=== PATIENT | female | born 1980 | race Caucasian/White ===

== ENCOUNTER 2022-01-03 08:11 | Emergency (ER) | payer SELFPAY ==
--- NOTE | 2022-01-03 08:23 | W.ED.GENADLT ---
HPI - General Adult General: Chief complaint: General Medical Stated complaint: Body Aches, Thought they had septsis HR High yest Time Seen by Provider: 01/03/22 08:16 Source: patient Mode of arrival: ambulatory Limitations: no limitations History of Present Illness: 41-year-old female presents emergency room with complaint of fever generalized weakness generally not feeling well. She states she is actually somewhat better today. She has a history of sepsis secondary to IV drug use. States she felt something [place] resolved now. She also has a dental carry on the right side that is swollen and painful. She denies any vomiting or diarrhea she has a midline umbilical hernia that has been present for some time and is unchanged. No vomiting or diarrhea no hematochezia melena hematemesis or coffee-ground emesis. No anosmia. Onset (ago): day(s) Severity: mild Relieving factors: none Exacerbating factors: none Associated symptoms: Reports diaphoresis, fevers/chills, malaise, nausea and weakness; Deny chest pain, confusion, cough, decreased appetite, dyspnea, headache(s), rash, palpitations, seizures, short of breath, syncope or vomiting Treatments prior to arrival: none Review of Systems Const: Reports: fever(s), chills, body aches, fatigue, malaise and diaphoresis ENMT: Denies: throat pain, ear or mastoid pain, nasal discharge or nasal congestion Card: Denies: chest pain, palpitations or syncope Resp: Denies: dyspnea GI: Reports: nausea; Denies: vomiting : Denies: flank pain, difficulty voiding, dysuria, urinary frequency or urinary urgency Skin/Breast: Denies: rash Neuro: Denies: headache(s) or confusion PFSH ED PFSH: Medical History Incarcerated umbilical hernia IV drug user Social History Smoking and tobacco status: current every day smoker Alcohol intake: current Desire information about substance/drug rehabilitation?: No Physical Exam Const: COMMON NORMALS: no acute distress GENERAL APPEARANCE: cooperative and comfortable ORIENTATION/CONSCIOUSNESS: Yes awake, Yes oriented to person, Yes oriented to place and Yes oriented to time HENMT: COMMON NORMALS: normocephalic, atraumatic, hearing grossly normal bilaterally, external ears normal, EAC's normal, TM's normal bilaterally, Normal nasal mucous membranes and turbinates present, moist oral mucous membranes and oropharynx normal HEAD & SCALP: normocephalic and atraumatic NOSE: Normal nasal mucous membranes and turbinates present EXTERNAL EAR: Yes external ears normal EXTERNAL AUDITORY CANAL: EAC's normal TYMPANIC MEMBRANE: TM's normal bilaterally Eye: COMMON NORMALS: Equal, round and reactive pupils present, EOMs intact bilaterally, conjunctivae normal and no scleral icterus CONJUNCTIVA: Yes conjunctivae normal PUPIL: Yes Equal, round and reactive pupils present Neck/C-Spine: COMMON NORMALS: full ROM, no lymphadenopathy, supple and no JVD Lymph: LYMPHATIC: no lymphadenopathy noted and no lymphedema noted Resp: COMMON NORMALS: normal respiratory effort, No retractions, No use of accessory muscles and clear to auscultation bilaterally AUSCULTATION: clear to auscultation bilaterally Cardio: COMMON NORMALS: no JVD, regular rate, regular rhythm and No murmurs present (Cardio) RATE: regular rate RHYTHM: regular rhythm GI: COMMON NORMALS: Soft to palpation and No hepatosplenomegaly present AUSCULTATION: Yes normoactive bowel sounds PALPATION: Yes Soft to palpation, No Tenderness to palpation present (GI), No Guarding due to palpation present (GI) and Yes No hepatosplenomegaly present OTHER: Nonreducible umbilical hernia superior to the umbilicus no significant pain : COMMON NORMALS: Yes no CVA tenderness BLADDER/KIDNEY EXAM: Yes no CVA tenderness Back/Pelvis: COMMON NORMALS: no CVA tenderness Extremity: COMMON NORMALS: normal to inspection, capillary refill normal, no clubbing, cyanosis or edema, no calf tenderness and no pedal edema Neuro: SENSORIUM/ORIENTATION: Yes oriented to person, Yes oriented to place and Yes oriented to time Skin: COMMON NORMALS: no rashes or lesions noted GENERAL SKIN EXAM: no rashes or lesions noted Course Vital Signs: Vital signs: Vital Signs Temperature 98.1 F 01/03/22 08:24 Pulse Rate 93 01/03/22 11:36 Respiratory Rate 15 01/03/22 08:24 Blood Pressure 109/76 01/03/22 11:36 Pulse Oximetry 100 01/03/22 11:36 [facility] - General Adult Medical Decision Making Patient does have the sore tooth there is no significant swelling no sign of abscess. Vitals essentially normal labs reviewed. She is currently on clindamycin for the tooth. We will add Bactrim to cover until her culture results are back no sign of sepsis this time overall patient is feeling well her white count is slightly low. Her liver functions are elevated suspect that is to do with her history of drug abuse the ultrasound of her gallbladder did not show acute cholecystitis nor did she have any symptoms suggestive of that. We will get her set up to see Dr. Merritt she will need further evaluation and repeat liver function testing. Return if has further problems. Continue self quarantine until Covid results are back she has fever or other worsening symptoms return take the Bactrim until culture results are available. At the time patient was seen there is no evidence of significant complication with her umbilical hernia was not evaluated further at this time she has had it for years and has not had any pain from it and does not now. Medical Records I reviewed the patient's medical records. Lab Data I reviewed the patient's lab results. : 01/03/22 08:43 01/03/22 08:43 Radiology Impressions Gallbladder Ultrasound 01/03/22 09:25 IMPRESSION: 1. Mild hepatomegaly with slightly coarse hepatic echotexture 2. Normal gallbladder. Gallbladder is contracted. 3. No hydronephrosis in RIGHT kidney. 4. Small umbilical hernia with hernia mouth measuring 0.6 cm. Herniated bowel with peristalsis in the hernia neck. No evidence of high-grade obstruction visualized. This can be further evaluated with CT for better anatomic detail. 5. Pancreas appears normal. Laboratory Results WBC 1.7 10^3/uL (4.0-10.0) L 01/03/22 08:43 RBC 4.94 10^6/uL (4.1-5.3) 01/03/22 08:43 Hgb 14.0 g/dL (11.5-15.3) 01/03/22 08:43 Hct 41.9 % (37.0-47.0) 01/03/22 08:43 MCV 84.8 fl (81-99) 01/03/22 08:43 MCH 28.3 pg (28.0-34.0) 01/03/22 08:43 MCHC 33.4 g/dL (30.0-36.0) 01/03/22 08:43 RDW 13.0 % (12.1-15.1) 01/03/22 08:43 Plt Count 140 10^3/cmm (130-400) 01/03/22 08:43 MPV 9.8 fL (7.4-10.4) 01/03/22 08:43 Neut % (Auto) 81.3 % 01/03/22 08:43 Lymph % (Auto) 11.7 % 01/03/22 08:43 [place] % (Auto) 3.5 % 01/03/22 08:43 Eos % (Auto) 2.3 % 01/03/22 08:43 Baso % (Auto) 0.6 % 01/03/22 08:43 Neut # (Auto) 1.39 10^3/uL (1.8-7.7) L 01/03/22 08:43 Lymph # (Auto) 0.2 10^3/uL (0.8-4.8) L 01/03/22 08:43 [place] # (Auto) 0.1 10^3/uL (0.2-0.9) L 01/03/22 08:43 Eos # (Auto) 0.0 10^3/uL (0.0-0.8) 01/03/22 08:43 Baso # (Auto) 0.0 10^3/uL (0.0-0.1) 01/03/22 08:43 Nucleated RBC % (auto) 0 % 01/03/22 08:43 Nucleated RBCs # 0.0 /100WBC 01/03/22 08:43 Sodium 131 mmol/L (136-145) L 01/03/22 08:43 Potassium 4.3 mmol/L (3.5-5.1) 01/03/22 08:43 Chloride 95 mmol/L (98-107) L 01/03/22 08:43 Carbon Dioxide 26 mmol/L (22-29) 01/03/22 08:43 Anion Gap 14.3 (5-19) 01/03/22 08:43 BUN 16 mg/dL (6-20) 01/03/22 08:43 Creatinine 0.7 mg/dL (0.5-0.9) 01/03/22 08:43 GFR Calculation 92.2 mL/min (90-130) 01/03/22 08:43 Glucose 102 mg/dL (65-115) 01/03/22 08:43 Calculated Osmolality 273 mOsm/kg (285-295) L 01/03/22 08:43 Lactic Acid 0.9 mmol/L (0.5-2.2) 01/03/22 09:35 Calcium 8.6 mg/dL (8.5-10.5) 01/03/22 08:43 Magnesium 1.7 mg/dL (1.7-2.3) 01/03/22 08:43 Total Bilirubin 2.0 mg/dL (0.15-1.2) H 01/03/22 08:43 AST 1247 U/L (0-32) H 01/03/22 08:43 ALT 367 U/L (0-33) H 01/03/22 08:43 Alkaline Phosphatase 321 IU/L (35-105) H 01/03/22 08:43 Total Protein 7.4 g/dL (6.6-8.7) 01/03/22 08:43 Albumin 4.6 g/dL (3.5-5.2) 01/03/22 08:43 Globulin 2.8 g/dL (1.3-4.6) 01/03/22 08:43 Lipase 9 U/L (13-60) L 01/03/22 08:43 Procalcitonin 0.45 ng/mL (0-0.5) 01/03/22 08:43 Ser , Semi-Qnt 0.50 mIU/mL 01/03/22 08:43 Urine Color Yellow (Yellow) 01/03/22 08:43 Urine Appearance Clear (CLEAR) 01/03/22 08:43 Urine pH 5 (5-7) 01/03/22 08:43 Ur Specific [place] 1.020 (1.005-1.030) 01/03/22 08:43 Urine Protein Trace (Negative) 01/03/22 08:43 Urine Glucose (UA) Norm (Normal) 01/03/22 08:43 Urine Ketones 1+ (Negative) H 01/03/22 08:43 Urine Blood Neg (Negative) 01/03/22 08:43 Urine Nitrate Negative (Negative) 01/03/22 08:43 Urine Bilirubin 1+ (Negative) H 01/03/22 08:43 Urine Urobilinogen 8 mg/dL (Negative) H 01/03/22 08:43 Ur Leukocyte Esterase Trace (Negative) H 01/03/22 08:43 Urine RBC None /hpf (0-2) 01/03/22 08:43 Urine WBC 0-4 /hpf (0-5) H 01/03/22 08:43 Ur Squamous Epith Cells 10-15 /hpf (0-5) H 01/03/22 08:43 Amorphous Sediment Not Reportable 01/03/22 08:43 Urine Bacteria Trace /hpf (NONE) 01/03/22 08:43 Urine Mucus Trace /hpf 01/03/22 08:43 Influenza Type A Ag Negative (Negative) 01/03/22 08:21 Influenza Type B Ag Negative (Negative) 01/03/22 08:21 Discharge Plan Discharge Patient Disposition: Home Clinical Impression: Fever, IV drug user, Elevated LFTs, Incarcerated umbilical hernia Condition: Stable Prescriptions: New Bactrim DS 800-160 mg tablet 1 tab PO DAILY 10 Days Qty: 20 0RF No Action clindamycin HCl 2 cap PO .ONCE 0RF Discharge Orders: Discharge ED (Routine); Ordered 01/03/22 Ordered By: Reynold Morfin Patient Instructions: Opioid Safety Activity Restrictions/Additional Instructions: Patient management will help get you set up with a primary care physician. You need to have your liver functions rechecked within the next 10 to 14 days. Return if you have worsening abdominal pain. Prophylactic antibiotics were prescribed until your blood culture reports are returned. Coding Level of Care Code ED [employer] for [place] Fwd Exam Comprehensive
[2022-01-03 08:24] VITALS: BP 119/73; PULSE 106; RESP 15; TEMP 36.7; O2SAT 100; BMI 19.5
--- NOTE | 2022-01-03 08:43 | PC.PHAR ---
pt states she took one of her ex husbands old antibiotics that starts with a c pt states she thinks it was clindamycin but unsure of the mg states she only took yesterday-pt states she also uses fentanyl off the streets
[2022-01-03 08:48] LABS: Basophils % 0.6 %; Eosinophils % 2.3 %; Hematocrit 41.9 % (37.0-47.0); Lymphocytes # 0.2 10^3/uL (0.8-4.8); Lymphocytes % 11.7 %; Mean Corpuscular HGB Conc 33.4 g/dL (30.0-36.0); Mean Corpuscular Hemoglobin 28.3 pg (28.0-34.0); Mean Corpuscular Volume 84.8 fl (81-99); Mean Platelet Volume 9.8 fL (7.4-10.4); Monocytes # 0.1 10^3/uL (0.2-0.9); Monocytes % 3.5 %; Neutrophils # 1.39 10^3/uL (1.8-7.7); Neutrophils % 81.3 %; Nucleated Red Blood Cells % 0 %; Platelet Count 140 10^3/cmm (130-400); Red Blood Count 4.94 10^6/uL (4.1-5.3); White Blood Count 1.7 10^3/uL (4.0-10.0)
[2022-01-03 08:57] LABS: Influenza A by IFA Negative (Negative); Influenza B by IFA Negative (Negative)
[2022-01-03 09:10] LABS: Alanine Aminotransferase 367 U/L (0-33); Albumin Level 4.6 g/dL (3.5-5.2); Alkaline Phosphatase 321 IU/L (35-105); Anion Gap 14.3 (5-19); Blood Urea Nitrogen 16 mg/dL (6-20); Calcium 8.6 mg/dL (8.5-10.5); Carbon Dioxide 26 mmol/L (22-29); Chloride 95 mmol/L (98-107); Globulin 2.8 g/dL (1.3-4.6); Glomerular Filtration Rate 92.2 mL/min (90-130); Glucose 102 mg/dL (65-115); Osmolality Calculated 273 mOsm/kg (285-295); Potassium 4.3 mmol/L (3.5-5.1); Sodium 131 mmol/L (136-145); Total Protein 7.4 g/dL (6.6-8.7)
[2022-01-03] MEDS: sodium chloride 0.9% 1,000 ML 999 ML IV (09:11)
[2022-01-03 09:19] LABS: Add Urine Microscopic? YES; Bilirubin Urine 1+ (Negative); Blood Urine Neg (Negative); Glucose Urine UA Norm (Normal); Ketones Urine 1+ (Negative); Leukocyte Esterase Urine Trace (Negative); Nitrate Urine Negative (Negative); Protein Urine Trace (Negative); Urine Appearance Clear (CLEAR); Urine Color Yellow (Yellow); Urobilinogen Urine 8 mg/dL (Negative); pH Urine 5 (5-7)
[2022-01-03 09:24] LABS: Aspartate Amino Transferase 1247 U/L (0-32)
--- NOTE | 2022-01-03 09:25 | US_ITS ---
WS: [id number] ULTRASOUND ABDOMEN LIMITED CLINICAL INFORMATION: elevated LFTs COMPARISON: None. FINDINGS: Liver Size: Mild hepatomegaly Craniocaudal length: 16.9 cm. Echogenicity: Coarse Surface nodularity: None. Mass (size and location): None. Bile ducts Intrahepatic ducts: Normal. Common bile duct diameter: 0.3 cm. Gallbladder Contracted Gallstones: None. Gallbladder sludge: None. Gallbladder wall thickening: None. Pericholecystic fluid: None. Sonographic Brewer sign: Absent. Pancreas Normal as visualized. Right kidney: Normal. Hydronephrosis: None. Size: 11.4 cm x 4.1 cm x 3.8 cm. Abdominal aorta and IVC Visualized portions are normal. Ascites: None. US/US gall bladder 82072 IMPRESSION: 1. Mild hepatomegaly with slightly coarse hepatic echotexture 2. Normal gallbladder. Gallbladder is contracted. 3. No hydronephrosis in RIGHT kidney. 4. Small umbilical hernia with hernia mouth measuring 0.6 cm. Herniated bowel with peristalsis in the hernia neck. No evidence of high-grade obstruction visu alized. This can be further evaluated with CT for better anatomic detail. 5. Pancreas appears normal.
[2022-01-03 09:30] LABS: Add Urine Culture? No; Bacteria Urine TRACE /hpf; Mucus Urine TRACE /hpf; WBC Urine 0-4 /hpf (0-5)
[2022-01-03 09:48] LABS: Lipase 9 U/L (13-60); Magnesium 1.7 mg/dL (1.7-2.3)
[2022-01-03 10:07] LABS: Procalcitonin 0.45 ng/mL (0-0.5)
[2022-01-03 10:11] LABS: Lactic Sepsis W/Reflex 0.9 mmol/L (0.5-2.2)
[2022-01-03 11:36] VITALS: BP 109/76; PULSE 93; O2SAT 100
[2022-01-04 14:57] LABS: Quest SARS-CoV-2 RNA NOT DETECTED (NOT DETECTED)
--- NOTE | 2022-01-04 16:12 | PC.NURSE ---
Informed pt of Negative COVID test
--- NOTE | 2022-01-07 08:34 | DCPLANNER ---
Addendum entered by Heidy Dean 02/07/22 08:48: Patient had a follow up appointment scheduled with Dr. Merritt - patient did not attend appointment. Original Note: manager of financial had message to schedule a follow up appointment for patient with Dr. Merritt. manager of financial called the office of Dr. Merritt, spoke with Catrachita, gave clinic patients information. A follow up appointment was scheduled for Thursday, January 22, 2022 at 2:[address] Merritt. Clinic will call patient with appointment information.
== END 2022-01-03 11:35 | disposition home or self-care (01) ==
PROVIDERS: Emergency Provider Family Medicine
DX: K42.0 Umbilical hernia with obstruction, without gangrene (principal); R79.89 Other specified abnormal findings of blood chemistry; R50.9 Fever, unspecified; F19.90 Other psychoactive substance use, unspecified, uncomplicated; F17.210 Nicotine dependence, cigarettes, uncomplicated; Z20.822 Contact with and (suspected) exposure to COVID-19
CPT/HCPCS: 36415; 76705; 80053; 81001; 83605; 83690; 83735; 84145; 84702; 85025; 87040; 87635; 87804; 96360; 99283; J7030

== ENCOUNTER 2023-03-08 21:19 | Emergency (ER) | payer MEDICAID, SELFPAY ==
[2023-03-08 21:35] VITALS: BP 116/78; PULSE 102; RESP 18; TEMP 36.7; O2SAT 98; BMI 18.8
--- NOTE | 2023-03-08 22:52 | CTR_ITS ---
PROCEDURE INFORMATION: Exam: CT Left Lower Extremity With Contrast, Foot Exam date and time: 03/09/2023 1:12 AM Age: 43 years old Clinical indication: Edema; Location not specified; Additional info: Redness, swelling, injected drugs with dirty needle, now red, swollen TECHNIQUE: Imaging protocol: CT of the left lower extremity with intravenous contrast was performed. Exam focused on the foot. Radiation optimization: All CT scans at this facility use at least one of these dose optimization techniques: automated exposure control; mA and/or kV adjustment per patient size (includes targeted exams where dose is matched to clinical indication); or iterative reconstruction. Contrast material: OMNI 350; Contrast volume: 75 ml; Contrast route: INTRAVENOUS (IV); REPORTING DATA: Count of CT and Cardiac NM exams in prior 12 months: This patient has received 0 known CTs and 0 known cardiac nuclear medicine studies in the 12 months prior to the current study. COMPARISON: No relevant prior studies available. RADIATION DOSE METRICS: Total DLP (mGy-cm): 157.26 FINDINGS: Bones/joints: No fracture or focal bone destruction. Soft tissues: Extensive ankle and distal soft tissue swelling with subcutaneous edema throughout. There is no soft tissue gas apparent. Other findings: No evidence of rim enhancing abscess. CT/CT foot LT w con [id number] IMPRESSION: 1. Extensive ankle and foot subcutaneous edema/cellulitis. 2. No fracture, foreign body, or abscess noted.
[2023-03-08] MEDS: iohexol 350 mg/mL 500 mL Btl (per mL) IV (23:05)
[2023-03-08 23:23] LABS: Basophils # 0.1 10^3/uL (0.0-0.1); Basophils % 0.8 %; Eosinophils # 0.1 10^3/uL (0.0-0.8); Eosinophils % 1.3 %; Hematocrit 44.5 % (37.0-47.0); Lymphocytes # 3.5 10^3/uL (0.8-4.8); Lymphocytes % 47.4 %; Mean Corpuscular HGB Conc 31.5 g/dL (30.0-36.0); Mean Platelet Volume 9.5 fL (7.4-10.4); Monocytes # 0.4 10^3/uL (0.2-0.9); Neutrophils # 3.38 10^3/uL (1.8-7.7); Neutrophils % 45.4 %; Nucleated Red Blood Cells % 0 %; Platelet Count 221 10^3/cmm (130-400); Red Cell Distribution Width 13.8 % (12.1-15.1); White Blood Count 7.5 10^3/uL (4.0-10.0)
--- NOTE | 2023-03-08 23:23 | ED_ITS ---
HPI - Extremity Problem General: Chief complaint: Extremity Injury, Lower Stated complaint: left foot swelling/redness Time Seen by Provider: 03/08/23 22:36 Source: patient Mode of arrival: ambulatory Limitations: no limitations History of Present Illness: Patient presents to the emergency department today for evaluation treatment of concerns for redness, swelling, and pain in her left foot and ankle. Patient admits that she is an IV drug user and several days ago allowed a friend to inject her in her foot. She states it was not until the next day that she noticed some swelling and redness developing. She admits she has had abscesses in the past but, states it has never come to ahead and seems to be getting worse without abscessing. Patient states it is now becoming painful to stand on and walk. She denies any fevers however. She admits to fentanyl use today. Review of Systems General: Reports: 10 or more systems reviewed and unremarkable except in HPI and below PFSH ED PFSH: Medical History Incarcerated umbilical hernia IV drug user Social History Smoking and tobacco status: current every day smoker Alcohol intake: current Substance/Drug Use: current Substance/Drug use frequency: daily Desire information about substance/drug rehabilitation?: No Physical Exam Const: COMMON NORMALS: no acute distress, patient oriented x3 and alert HENMT: COMMON NORMALS: normocephalic, atraumatic and hearing grossly normal bilaterally HEAD & SCALP: normocephalic and atraumatic Eye: COMMON NORMALS: Equal, round and reactive pupils present, EOMs intact bilaterally and conjunctivae normal CONJUNCTIVA: Yes conjunctivae normal PUPIL: Yes Equal, round and reactive pupils present Neck/C-Spine: COMMON NORMALS: full ROM and no JVD Lymph: LYMPHATIC: no lymphadenopathy noted Resp: COMMON NORMALS: normal respiratory effort, No retractions and No use of accessory muscles Cardio: COMMON NORMALS: no JVD and regular rate RATE: regular rate Extremity: NARRATIVE EXTREMITY EXAM: Patient has significant swelling of her left foot and ankle. There is edema but, is not pitting at this time. Patient has confluent erythema affecting her right foot with a central area noted to the dorsum of the midfoot which was the original injection site. There is no active draining. There is no fluctuance indicating an active abscess on the skin. Patient's foot is approximately twice the size of her right foot. Neuro: COMMON NORMALS: patient oriented x3 SENSORIUM/ORIENTATION: Yes alert Psych: COMMON NORMALS: mental status grossly normal, Normal thought process present, cooperative and normal affect THOUGHT PROCESS: Normal thought process present Skin: COMMON NORMALS: no rashes or lesions noted and turgor normal GENERAL SKIN EXAM: no rashes or lesions noted and turgor normal Course Vital Signs: Vital signs: Vital Signs Temperature 98.0 F 03/08/23 21:35 Pulse Rate 102 H 03/09/23 01:47 Respiratory Rate 16 03/09/23 01:47 Blood Pressure 111/72 03/09/23 01:47 Pulse Oximetry 99 03/09/23 01:47 Oxygen Delivery Me thod Room Air 03/09/23 01:33 MDM - Extremity (Nontraumatic) Medical Decision Making Patient presents today for concerns of swelling and redness of her left foot after having IV drugs injected by a friend several days ago. Patient had a negative lactic and no significant elevated white blood cell count however, her physical examination is quite concerning. She was given a CT examination of her foot to evaluate for deep abscess or osteomyelitis. While waiting for the CT to be performed, we did order vancomycin and Zosyn to be given here in the emergency department. CT was negative for any signs of deep abscess or osteomyelitis. Patient was discharged on clindamycin to be continued for the next 10 days and strict return precautions for any worsening or change in signs of infection were discussed and she is to be seen and reevaluated. Patient's other evaluation indicated a positive trichomonas infection in the urine. She also tested positive for both hepatitis B and C. A referral to infectious disease was requested through case management and, treatment with metronidazole was provided at discharge as well. Differential Diagnosis Likely cellulitis (Osteomyelitis, deep abscess) and superficial thrombophlebitis Lab Data 03/08/23 23:14 03/08/23 23:[address] 03/08/23 22:52 IMPRESSION: 1. Extensive ankle and foot subcutaneous edema/cellulitis. 2. No fracture, foreign body, or abscess noted. Laboratory Results WBC 7.5 10^3/uL (4.0-10.0) 03/08/23 23:14 RBC 5.00 10^6/uL (4.1-5.3) 03/08/23 23:14 Hgb 14.0 g/dL (11.5-15.3) 03/08/23 23:14 Hct 44.5 % (37.0-47.0) 03/08/23 23:14 MCV 89.0 fl (81-99) 03/08/23 23:14 MCH 28.0 pg (28.0-34.0) 03/08/23 23:14 MCHC 31.5 g/dL (30.0-36.0) 03/08/23 23:14 RDW 13.8 % (12.1-15.1) 03/08/23 23:14 Plt Count 221 10^3/cmm (130-400) 03/08/23 23:14 MPV 9.5 fL (7.4-10.4) 03/08/23 23:14 Neut % (Auto) 45.4 % 03/08/23 23:14 Lymph % (Auto) 47.4 % 03/08/23 23:14 [place] % (Auto) 5.0 % 03/08/23 23:14 Eos % (Auto) 1.3 % 03/08/23 23:14 Baso % (Auto) 0.8 % 03/08/23 23:14 Neut # (Auto) 3.38 10^3/uL (1.8-7.7) 03/08/23 23:14 Lymph # (Auto) 3.5 10^3/uL (0.8-4.8) 03/08/23 23:14 [place] # (Auto) 0.4 10^3/uL (0.2-0.9) 03/08/23 23:14 Eos # (Auto) 0.1 10^3/uL (0.0-0.8) 03/08/23 23:14 Baso # (Auto) 0.1 10^3/uL (0.0-0.1) 03/08/23 23:14 Nucleated RBC % (auto) 0 % 03/08/23 23:14 Nucleated RBCs # 0.0 /100WBC 03/08/23 23:14 ESR 2 mm/hr (0-15) 03/09/23 00:50 Sodium 132 mmol/L (136-145) L 03/08/23 23:14 Potassium 3.5 mmol/L (3.5-5.1) 03/08/23 23:14 Chloride 95 mmol/L (98-107) L 03/08/23 23:14 Carbon Dioxide 21 mmol/L (22-29) L 03/08/23 23:14 Anion Gap 19.5 (5-19) H 03/08/23 23:14 BUN 18 mg/dL (6-20) 03/08/23 23:14 Creatinine 0.6 mg/dL (0.5-0.9) 03/08/23 23:14 GFR Calculation 109.1 mL/min (90-130) 03/08/23 23:14 Glucose 102 mg/dL (65-115) 03/08/23 23:14 Calculated Osmolality 276 mOsm/kg (285-295) L 03/08/23 23:14 Lactic Acid 1.6 mmol/L (0.5-2.2) 03/08/23 23:15 Calcium 9.2 mg/dL (8.5-10.5) 03/08/23 23:14 Total Bilirubin 1.2 mg/dL (0.15-1.2) 03/08/23 23:14 AST 15 U/L (0-32) 03/08/23 23:14 ALT 11 U/L (0-33) 03/08/23 23:14 Alkaline Phosphatase 87 U/L (35-105) 03/08/23 23:14 C-Reactive Protein 4.1 mg/L (0.0-4.9) 03/08/23 23:14 Total Protein 7.4 g/dL (6.6-8.7) 03/08/23 23:14 Albumin 4.3 g/dL (3.5-5.2) 03/08/23 23:14 Globulin 3.1 g/dL (1.3-4.6) 03/08/23 23:14 HCG, Qual Negative (Negative) 03/08/23 00:40 Urine Color [place] (Yellow) 03/09/23 00:40 Urine Appearance Hazy (CLEAR) A 03/09/23 00:40 Urine pH 5 (5-7) 03/09/23 00:40 Ur Specific [place] 1.030 (1.005-1.030) 03/09/23 00:40 Urine Protein Trace (Negative) 03/09/23 00:40 Urine Glucose (UA) Norm (Normal) 03/09/23 00:40 Urine Ketones Negative (Negative) 03/09/23 00:40 Urine Blood Neg (Negative) 03/09/23 00:40 Urine Nitrate Negative (Negative) 03/09/23 00:40 Urine Bilirubin 1+ (Negative) H 03/09/23 00:40 Urine Urobilinogen 1 mg/dL (Negative) H 03/09/23 00:40 Ur Leukocyte Esterase Negative (Negative) 03/09/23 00:40 Urine RBC 0-4 /hpf (0-2) H 03/09/23 00:40 Urine WBC >100 /hpf (0-5) H 03/09/23 00:40 Ur Squamous Epith Cells 10-15 /hpf (0-5) H 03/09/23 00:40 Amorphous Sediment Not Reportable 03/09/23 00:40 Urine Bacteria 1+ /hpf (NONE) H 03/09/23 00:40 Urine Mucus 3+ /hpf 03/09/23 00:40 Urine Trichomonas 1+ /hpf H 03/09/23 00:40 Vancomycin Trough < 4.0 ug/mL (10-15) L 03/09/23 00:54 Hepatitis A IgM Ab Non-reactive (Nonreactive) 03/08/23 23:14 Hep Bs Antigen Reactive (Nonreactive) H 03/08/23 23:14 Hep Bs Antibody > 1000.0 (11.5-1000) H 03/08/23 23:14 Hep B Core Total Ab Equivocal (Nonreactive) A* 03/08/23 23:14 Hepatitis C Antibody Reactive (Nonreactive) H 03/08/23 23:14 HIV 1&2 Ab & HIV 1 Ag Non-reactive (Non-Reactiv) 03/08/23 23:14 HIV 1&2 Antibody Non-reactive (Non-Reactiv) 03/08/23 23:14 Discharge Plan Discharge Patient Disposition: Home Clinical Impression: Puncture wound of foot, Cellulitis of foot, Edema of left foot, Hepatitis B, Hepatitis C infection, Trichomonas vaginalis (TV) infection Condition: Stable Prescriptions: New clindamycin HCl 300 mg capsule 300 mg PO Q6H 10 Days Qty: 40 0RF metronidazole 500 mg tablet 500 mg PO BID 7 Days Qty: 14 0RF No Action clindamycin HCl 2 cap PO .ONCE Discharge Orders: Discharge ED (Routine); Ordered 03/09/23 Ordered By: Prachi Cronin Discharge Diet: Usual diet Discharge Activity: Increase activity as tolerated Patient Instructions: Trichomoniasis (ED), Cellulitis (ED), Hepatitis C (DC), Hepatitis B (ED) Activity Restrictions/Additional Instructions: The CT examination of your foot shows no signs of any deep abscess or bone infe ction at this time. There is diffuse skin infection noted throughout the foot however and we did start you on some IV antibiotics here in the emergency department. We will continue treatment with oral antibiotics for the next 10 days. Incidentally, your other lab work indicated concerns for an active hepatitis B and hepatitis C infection. As these can cause issues with your liver including liver failure, I have requested a follow-up appointment with our infectious disease department to speak with you regarding treatment options for this finding. I have also included some information about hepatitis B and hepatitis C for you to look over at home. Urinalysis was also positive for trichomonas. This is a sexually transmitted infection and does require treatment as well. I have given you prescription for metronidazole to take for 1 week to treat this infection. You need to remain abstinent during this time of treatment. Do not drink any alcohol while taking metronidazole as it can make you violently ill. Continue to monitor for any new onset of fever. If you do not notice any improvement of the redness, swelling, or discomfort you are having in your foot after the next 48 hours of antibiotic treatment we do recommend being seen and reevaluated again. Coding Level of Care Code ED Rn Acute Care for Milton Paz
[2023-03-08 23:37] VITALS: BP 84/59; PULSE 75; RESP 14; O2SAT 99
[2023-03-08 23:43] LABS: Lactic Sepsis W/Reflex 1.6 mmol/L (0.5-2.2)
[2023-03-08 23:46] LABS: Alanine Aminotransferase 11 U/L (0-33); Albumin Level 4.3 g/dL (3.5-5.2); Alkaline Phosphatase 87 U/L (35-105); Anion Gap 19.5 (5-19); Aspartate Amino Transferase 15 U/L (0-32); Blood Urea Nitrogen 18 mg/dL (6-20); C Reactive Protein 4.1 mg/L (0.0-4.9); Calcium 9.2 mg/dL (8.5-10.5); Carbon Dioxide 21 mmol/L (22-29); Chloride 95 mmol/L (98-107); Globulin 3.1 g/dL (1.3-4.6); Glomerular Filtration Rate 109.1 mL/min (90-130); Glucose 102 mg/dL (65-115); Osmolality Calculated 276 mOsm/kg (285-295); Potassium 3.5 mmol/L (3.5-5.1); Sodium 132 mmol/L (136-145); Total Bilirubin 1.2 mg/dL (0.15-1.2); Total Protein 7.4 g/dL (6.6-8.7)
[2023-03-09] LABS: Hepatitis A Antibody IgM Non-Reactive (Nonreactive)
[2023-03-09 00:08] LABS: HIV 1 & 2 Antibody Non-Reactive (Non-Reactiv); HIV 1 & 2 Antigen Non-Reactive (Non-Reactiv)
[2023-03-09] MEDS: sodium chloride 0.9% 1,000 ML 999 ML IV (00:37)
[2023-03-09] MEDS: ketorolac 30 mg/mL INJ IVP (00:39)
[2023-03-09 00:52] LABS: Erythrocyte Sedimentation Rate 2 mm/hr (0-15)
--- NOTE | 2023-03-09 00:59 | PC.PHAR ---
Pharmacokinetic dosing service Date: 03/09/23 Time: 99 Objective: Patient: Jazzy Martinez Floor: ER-15 Age: 43 yo Serum creatinine: 0.6 mg/dL Height: 64.0 Inches Weight (kg): 49.895 Diagnosis: Relevant medical/social history: Cultures and sensitivities: Other labs: Assessment: IBW (kg): 54.70 Dosing wt(kg): 49.895 Estimated Creatinine clearance (ml/min): 95.2 CRCL method: Cockcroft and Gault using ibw(default). Drug selected: Vancomycin Loading dose (mg): 0 Vd (liters): 44.9 (factor used: 0.9 L/kg) David (hr-1): 0.083 Half life (hrs): 8.35 Recommended dose: 1000 mg Interval: 12 hrs Infusion time (hrs): 1.5 Predicted peak (mcg/mL): 33.2 Predicted trough (mcg/mL): 13.89 Total body weight is being used for vancomycin dosing. Renal function is stable [ ] /unstable [ ] Recommendations: Give Vancomycin 1000 mg q 12 hrs with an expected Cpeak of 33.2 mcg/ml and an expected Ctrough of 13.89 mcg/ml Renal dosing of other antibiotics (review renal dosing of other medications and list guidelines here): Thank you for the consult, will continue to follow. Signature: Marta Garay [facility]
[2023-03-09 01:03] LABS: HCG Qualitative Urine. Negative (Negative)
[2023-03-09 01:16] LABS: Hepatitis B Core AB, Total Equivocal (Nonreactive); Hepatitis B Surface AB > 1000.0 (11.5-1000); Hepatitis C Virus Antibody Reactive (Nonreactive)
[2023-03-09 01:17] LABS: Hepatitis B Surface Antigen Reactive (Nonreactive)
[2023-03-09 01:18] LABS: Urine Appearance Hazy (CLEAR); Urine Color Orange (Yellow)
[2023-03-09 01:19] LABS: Bilirubin Urine 1+ (Negative); Blood Urine Neg (Negative); Glucose Urine UA Norm (Normal); Ketones Urine Negative (Negative); Leukocyte Esterase Urine Negative (Negative); Nitrate Urine Negative (Negative); Protein Urine Trace (Negative); Urobilinogen Urine 1 mg/dL (Negative); pH Urine 5 (5-7)
[2023-03-09 01:20] LABS: Add Urine Microscopic? YES
[2023-03-09 01:24] LABS: Mucus Urine 3+ /hpf; RBC Urine 0-4 /hpf (0-2); WBC Urine >100 /hpf (0-5)
[2023-03-09 01:26] LABS: Trichomonas Urine 1+ /hpf
[2023-03-09 01:27] LABS: Bacteria Urine 1+ /hpf
[2023-03-09] MEDS: vancomycin 1,000 MG in sodium chloride 0.9% 250 ML 250 MG IV (01:31)
[2023-03-09 01:33] VITALS: BP 94/62; PULSE 71; RESP 14; O2SAT 100
[2023-03-09 01:47] VITALS: BP 111/72; PULSE 102; RESP 16; O2SAT 99
[2023-03-09 01:56] LABS: Vancomycin Trough < 4.0 ug/mL (10-15)
[2023-03-09] MEDS: piperacillin-tazobactam 3.375 GM in sodium chloride 0.9% (plus) 50 ML IV (02:54)
[2023-03-09 03:04] VITALS: BP 90/58; PULSE 69; RESP 16; O2SAT 98
--- NOTE | 2023-03-09 10:58 | DCPLANNER ---
Addendum entered by Heidy Dean 03/22/23 06:33: manager agricultural received the following messages from [facility] regarding follow up appointment: unable to contact. will mail letter. Rahul Avendano completed item. On Selena 3:41p March 19, 2023 Rahul Avendano (Covering For: Dr. Jaycob Huertas) Wrote To: Dr. Jaycob Huertas unable to LVM. On Selena 3:14p March 12, 2023 Rahul Avendano (Covering For: Dr. Jaycob Huertas) Wrote To: Dr. Jaycob Huertas lvm Addendum entered by Heidy Dean 03/18/23 15:15: manager agricultural received the following message from the [facility] regarding follow up appointment: lvm Original Note: manager agricultural had message to schedule a follow up appointment for patient with [facility]. manager agricultural sent patients information to the front office staff at [facility]. Patients information will be printed and reviewed. Clinic will call patient with appointment information.
[2023-03-12 23:20] LABS: HEP C RNA Viral Load Quant <1.18 NOT DETECTED Log IU/mL (NOT DETECTED); HEP C RNA Viral Load Quant <15 NOT DETECTED IU/mL (NOT DETECTED)
--- NOTE | 2023-03-19 13:12 | DCPLANNER ---
healthcare consulting manager called patient due to no primary care physician - no answer at this time
== END 2023-03-09 03:11 | disposition home or self-care (01) ==
PROVIDERS: Emergency Provider Physician Assistant
DX: S91.332A Puncture wound without foreign body, left foot, initial encounter (principal); L03.116 Cellulitis of left lower limb; R60.9 Edema, unspecified; B19.10 Unspecified viral hepatitis B without hepatic coma; B19.20 Unspecified viral hepatitis C without hepatic coma; A59.01 Trichomonal vulvovaginitis; W46.0XXA Contact with hypodermic needle, initial encounter; F17.210 Nicotine dependence, cigarettes, uncomplicated
CPT/HCPCS: 73701; 80053; 80202; 81001; 81025; 83605; 85025; 85651; 86140; 86705; 86706; 86709; 86803; 87040; 87340; 87522; 87806; 96365; 96375; 99285; J1885; J2543; J3370; J7030; J7050; Q9967